=== PATIENT | female | born 1985 | race Two or more races ===

== ENCOUNTER 2018-10-03 10:39 | Observation (INO) | payer OTHER ==
[2018-10-02 13:33] VITALS: BMI 33.3
[2018-10-03] VITALS (20 sets, daily range): BP systolic 106–129; BP diastolic 61–76; PULSE 82–132; RESP 15–19; Ht 157.5 cm; Wt 83.0 kg
[~2018-10-03] VITALS: Ht 157.5 cm; Wt 83.0 kg
[~2018-10-03 10:39] MED LIST: SEVOFLURANE 15 MIN ONE
[2018-10-03] MEDS: LACTATED RINGER'S 1,000 ML IV SCH (12:25)
[2018-10-03] MEDS ORDERED: GELATIN SIZE 100 SPONGE ONE (14:04)
[2018-10-03] MEDS ORDERED: BUPIVACAINE 0.5%/EPI (SDV) 30 ML INJ ONE (14:04)
[2018-10-03] MEDS ORDERED: POLYMYXIN/BACITRACIN 1L IRRIG ONE (14:04)
[2018-10-03] MEDS ORDERED: THROMBIN 5000 UNIT VIAL ONE (14:04)
--- NOTE | 2018-10-03 14:25 | HPN ---
Date/Time of Note Date/Time of Note DATE: 10/03/18 TIME: 14:24 Interval H&P Admission Note Pt. seen H&P reviewed: Systems changes noted below Her updated lumbar MRI shows a large L5-S1 extruded fragment that causes severe Left lateral recess and moderate right lateral recess stenosis. Therefore a L5- S1 right sided decompression was also added to the consent. CIPRIANO GALAVIZ MD Oct 03, 2018 14:25
--- NOTE | 2018-10-03 15:03 | PREAC ---
Date/Time of Note Date/Time of Note DATE: 10/03/18 TIME: 15:01 Anesthesia Eval and Record Evaluation Time Pre-Procedure Interview DATE: 10/03/18 TIME: 15:01 Age 33 Sex female NPO: 8 hrs Preoperative diagnosis L5-S1 Disc herniation Planned procedure L5-S1 Decompression, microdiscectomy Past Medical History Past Medical History: Includes GI: Morbid obesity Surgery & Anesthesia Issues No known issue Meds Anticoagulation: No Beta Gonzalez within 24 hr: No Reason Beta Gonzalez not given: Pt. not on B-Gonzalez No Active Prescriptions or Reported Meds Current Medications Lactated Ringer's 1,000 ml @ 0 mls/hr Q0M IV Last administered on 10/03/18at 12:25; Admin Dose 0 MLS/HR; Start 10/03/18 at 12:00 Meds reviewed: Yes Allergies Coded Allergies: No Known Allergy (Unverified , 10/02/18) Allergies Reviewed: Yes Labs/Studies Labs Reviewed: Reviewed by anesthesiologist test: Negative Studies: ECG Pre-procedure Exam Last vitals Vital Signs Date Temp Pulse Resp B/P (MAP) Pulse Ox O2 O2 Flow FiO2 Time Delivery Rate 10/03/18 98.4 82 16 114/72 99 Room Air 11:47 (86) Airway: Adequate mouth opening, Adequate thyromental dist Mallampati: Mallampati II Teeth: Normal Lung: Normal Heart: Normal ASA Physical Status ASA physical status: 2 Emergency: None Planned Anesthetic General/MAC: ETT Planned Pain Management Parenteral pain med Pre-operative Attestations Prior to commencing anesthesia and surgery, the patient was re-evaluated, there was verification of: *The patient's identity *The results of appropriate recent lab work and preoperative vital signs *The above evaluation not changing prior to induction *Anesthetic plan, risk benefits, alternative and complications discussed with patient/family; questions answered; patient/family understands, accepts and wishes to proceed. VANESSA PALAFOX MD Oct 03, 2018 15:03
[2018-10-03] MEDS ORDERED: MIDAZOLAM 1 MG/ML 2 ML INJ ONE (15:09)
[2018-10-03] MEDS ORDERED: ROCURONIUM 50 MG INJ ONE (17:52)
[2018-10-03] MEDS ORDERED: GLYCOPYRROLATE 0.4 MG INJ ONE (17:52)
[2018-10-03] MEDS ORDERED: NEOSTIGMINE 3 MG/3 ML SYRINGE ONE (17:52)
[2018-10-03] MEDS ORDERED: LIDOCAINE 2% (SDV) 5 ML INJ ONE (17:52)
[2018-10-03] MEDS ORDERED: PROPOFOL 20 ML ONE (17:52)
[2018-10-03] MEDS ORDERED: ONDANSETRON 4 MG INJ ONE (17:53)
[2018-10-03] MEDS ORDERED: CEFAZOLIN 1 GM INJ ONE (17:53)
[2018-10-03] MEDS ORDERED: NACL 0.9% 3 ML SYG IV SCH (18:00)
[2018-10-03] MEDS: CEFAZOLIN 1 GM/50 ML (PMX) 50 ML IVPB SCH (18:00)
[2018-10-03] MEDS ORDERED: ACETAMINOPHEN 325 MG TAB PO PRN (18:00)
[2018-10-03] MEDS ORDERED: HYDROCODONE/APAP (5/325) TAB PO PRN (18:00)
[2018-10-03] MEDS ORDERED: PROCHLORPERAZINE 10 MG TAB PO PRN (18:00)
[2018-10-03] MEDS ORDERED: NALOXONE (0.4 MG/ML) INJ IV PRN (18:00)
[2018-10-03] MEDS ORDERED: AL HYDROX/MG HYDROX/SIMETH 30 ML CUP PO PRN (18:00)
--- NOTE | 2018-10-03 18:10 | OPR ---
Date/Time of Note Date/Time of Note DATE: 10/03/18 TIME: 18:08 Operative Report Free Text/Dictation DATE OF OPERATION: 10/03/2018 PREOPERATIVE DIAGNOSES: Left sided L5-S1 disk herniation with S1 radiculopathy POSTOPERATIVE DIAGNOSES: Left sided L5-S1 disk herniation with S1 radiculopathy OPERATION PERFORMED: Left L5-S1 microdiscectomy SURGEON: Cipriano Galaviz MD ANESTHESIA: General endotracheal ESTIMATED BLOOD LOSS: 40 mL SURGICAL INDICATION: The patient is a 33 year-old female who presents with a history of left lower extremity pain and weakness. She was found to have a disc herniation which correlated well with her symptoms. The patient had failed conservative treatment. Risks, benefits, and alternatives to microdiscectomy were explained to the patient and they wished to proceed. Risks explained included but were not exclusive of bleeding, infection, cauda equina syndrome, nerve injury, dural tear, iatrogenic instability, recurrent disc herniation, fracture, vascular injury, bowel injury, stroke, heart attack and pulmonary embolism. DESCRIPTION OF TECHNIQUE: The patient was identified in the preoperative area and taken to the operating room. Rapid induction of general endotracheal anesthesia was performed. The patient was given 2 g of cefazolin for prophylaxis. The patient was then placed in the prone position on the Dimas frame on a Abdullahi flat top table with all prominences well padded. The back was prepped and draped in the usual sterile manner. Using a spinal needle and intraoperative fluoroscopy, the appropriate level was clearly identified (L5-S1 ). The skin was injected using 0.5% Marcaine with epinephrine. Longitudinal midline incision was then created using a 10 blade. Further dissection through soft tissue was performed using electrocautery down to the spinous processes. The dissection was taken down the left side of the lamina and over the facet joint capsule. A self-retaining retractor was applied. Again, intraoperative fluoroscopy confirmed the appropriate level. The microscope was brought into use for microdissection. A small portion of the caudal aspect of the cephalad lamina and medial facet was resected using a high-speed bur. A series of Kerrison rongeurs were then used to resect the ligamentum flavum. The left S1 pedicle was identified using a nila. The dura and traversing nerve root were both directly visualized. These were retracted gently in a medial direction. Immediately, the extruded disc fragment was noted. The pseudo anulus was incised using an 11 blade. Several loose fragments of disk were removed. These were removed back to a stable portion of the disk. A nerve hook and a series of pituitaries were used to ensure removal of all loose fragments. The disk space was further pressurized using a using normal saline through a syringe to ensure that no loose fragments remained behind. Palpation with a ball-tip probe did not reveal any further stenosis. The traversing left S1 nerve root was noted to be significantly decompressed. Meticulous attention was paid towards hemostasis using FloSeal. Care was taken to remove all FloSeal prior to wound closure. The fascia was then closed using 0 Vicryl in an interrupted fashion. Subcutaneous tissue was closed using 2-0 Vicryl in an interrupted fashion. The skin was closed using a running 4-0 Monocryl stitch. The wound was dressed using Dermabond and a 4x4 sterile gauze. The patient was returned to the supine position. He was extubated immediately postoperatively and taken to the recovery room in stable condition. COMPLICATIONS: None. Procedure Date: Oct 03, 2018 Preoperative Diagnosis Left sided L5-S1 disk herniation with S1 radiculopathy Postoperative Diagnosis Left sided L5-S1 disk herniation with S1 radiculopathy Operation/Procedure Performed Left L5-S1 microdiscectomy Surgeon see signature line [employer] MARGARETTE Bravo Anesthesia Type: general Estimated Blood Loss: 10 - 50 ml's Transfusion none Specimen L5-S1 disk Grafts/Implants none Complications none Pt Condition Post Procedure: stable Disposition: PACU Procedure Description DESCRIPTION OF TECHNIQUE: The patient was identified in the preoperative area and taken to the operating room. Rapid induction of general endotracheal anesthesia was performed. The patient was given 2 g of cefazolin for prophylaxis. The patient was then placed in the prone position on the Dimas frame on a Abdullahi flat top table with all prominences well padded. The back was prepped and draped in the usual sterile manner. Using a spinal needle and intraoperative fluoroscopy, the appropriate level was clearly identified (L5- S1). The skin was injected using 0.5% Marcaine with epinephrine. Longitudinal midline incision was then created using a 10 blade. Further dissection through soft tissue was performed using electrocautery down to the spinous processes. The dissection was taken down the left side of the lamina and over the facet joint capsule. A self-retaining retractor was applied. Again, intraoperative fluoroscopy confirmed the appropriate level. The microscope was brought into use for microdissection. A small portion of the caudal aspect of the cephalad lamina and medial facet was resected using a high-speed bur. A series of Kerrison rongeurs were then used to resect the ligamentum flavum. The left S1 pedicle was identified using a nila. The dura and traversing nerve root were both directly visualized. These were retracted gently in a medial direction. Immediately, the extruded disc fragment was noted. The pseudo anulus was incised using an 11 blade. Several loose fragments of disk were removed. These were r emoved back to a stable portion of the disk. A nerve hook and a series of pituitaries were used to ensure removal of all loose fragments. The disk space was further pressurized using a using normal saline through a syringe to ensure that no loose fragments remained behind. Palpation with a ball-tip probe did not reveal any further stenosis. The traversing left S1 nerve root was noted to be significantly decompressed. Meticulous attention was paid towards hemostasis using FloSeal. Care was taken to remove all FloSeal prior to wound closure. The fascia was then closed using 0 Vicryl in an interrupted fashion. Subcutaneous tissue was closed using 2-0 Vicryl in an interrupted fashion. The skin was closed using a running 4-0 Monocryl stitch. The wound was dressed using Dermabond and a 4x4 sterile gauze. The patient was returned to the supine position. He was extubated immediately postoperatively and taken to the recovery room in stable condition. CIPRIANO GALAVIZ MD Oct 03, 2018 18:10
--- NOTE | 2018-10-03 18:14 | PAC ---
Date/Time of Note Date/Time of Note DATE: 10/03/18 TIME: 18:13 Post-Anesthesia Notes Post-Anesthesia Note Last documented vital signs Vital Signs Date Temp Pulse Resp B/P (MAP) Pulse Ox O2 O2 Flow FiO2 Time Delivery Rate 10/03/18 98.4 82 16 114/72 99 Room Air 11:47 (86) Activity: WNL Respiratory function: WNL Cardiovascular function: WNL Mental status: Baseline Pain reasonably controlled: Yes Hydration appropriate: Yes Nausea/Vomiting absent: Yes Comments BP:118/56, P;92, Spo2:100%, T:98,8 VANESSA PALAFOX MD Oct 03, 2018 18:14
[2018-10-03] MEDS ORDERED: HYDROmorphONE 1 MG/5 ML IV SYRINGE IV ONE (18:15)
[2018-10-03] MEDS: HYDROmorphONE 1 MG/5 ML IV SYRINGE IV PRN ×2 (18:26→18:44)
[2018-10-03] MEDS ORDERED: FENTAnyl 50 MCG/ML VIAL IV PRN (18:30)
[2018-10-03] MEDS ORDERED: DIPHENHYDRAMINE 50 MG INJ IV PRN (18:30)
[2018-10-03] MEDS ORDERED: ONDANSETRON 4 MG INJ IV PRN (18:30)
[2018-10-03] MEDS ORDERED: HYDROmorphONE 1 MG/5 ML IV SYRINGE IV PRN (18:30)
[2018-10-03] MEDS ORDERED: HYDROmorphONE 0.5 MG/0.5 ML SYG IV PRN (18:30)
[2018-10-03] MEDS ORDERED: MEPERIDINE 25 MG INJ IV PRN (18:30)
[2018-10-03] MEDS ORDERED: METOCLOPRAMIDE 10 MG INJ IV PRN (18:30)
[2018-10-03] MEDS: HYDROmorphONE 0.2 MG/ML PCA IV SCH (18:39)
[2018-10-03] MEDS: HYDROCODONE/APAP (5/325) TAB PO PRN (19:12)
[2018-10-04] MEDS: CEFAZOLIN 1 GM/50 ML (PMX) 50 ML IVPB SCH ×3 (00:17→12:18)
[2018-10-04 00:19] VITALS: BP 112/72; PULSE 76; RESP 17
[2018-10-04] MEDS: LACTATED RINGER'S 1,000 ML IV SCH (00:30)
[2018-10-04] MEDS: ONDANSETRON 4 MG INJ IV PRN ×3 (00:45→13:44)
[2018-10-04 04:37] VITALS: BP 109/67; PULSE 83; RESP 18
[2018-10-04] MEDS: HYDROmorphONE 0.2 MG/ML PCA IV SCH (04:41)
[2018-10-04 07:38] VITALS: BP 115/71; PULSE 96; RESP 18
--- NOTE | 2018-10-04 08:58 | PDOCDIS ---
Discharge Instructions CONDITION [id number] Patient Condition: [id number] Good HOME CARE INSTRUCTIONS: [id number] Diet Instructions: [id number] Regular ACTIVITY: [id number] Activity Restrictions: [id number] Avoid heavy lifting [id number] Bathing Restrictions: [id number] Shower FOLLOW UP/APPOINTMENTS Follow-up Plan follow-up with Dr. Galaviz in 2 weeks CIPRIANO GALAVIZ MD Oct 04, 2018 08:58
[2018-10-04] MEDS ORDERED: DOCUSATE SODIUM 100 MG CAP PO SCH (09:00)
[2018-10-04 15:07] VITALS: BP 114/89; PULSE 88; RESP 18
[2018-10-04] MEDS: HYDROCODONE/APAP (5/325) TAB PO PRN (18:11)
[2018-10-04] MEDS ORDERED: CEFAZOLIN 1 GM/50 ML (PMX) 50 ML IVPB SCH (18:30)
== END 2018-10-04 19:45 | disposition home or self-care (01) ==
LOC: SDS 10:39 → MS1 18:04 → SDS 18:04
PROVIDERS: ADMIT Orthopaedic Surgery; ATTEND Orthopaedic Surgery
DX: M51.17 Intervertebral disc disorders with radiculopathy, lumbosacral region (principal)
CPT/HCPCS: 63030; 72100; 80048; 84703; 85014; 85018; 88304; 97116; 97161; 97530; G0378; J0690; J1170; J2175; J2250; J2405; J2710; J3010; J2310